=== PATIENT | female | born 1970 | race American Indian/Alaskan Native ===

== ENCOUNTER 2017-04-27 06:10 | Inpatient (IN) | payer OTHER ==
[2017-04-16 12:38] LABS: Basophils % (Auto) 1.1 % (0.0-1.8); Eosinophils % (Auto) 2.1 % (0.0-4.3); Hematocrit 38.7 % (30.3-42.9); Hemoglobin 12.3 gm/dl (10.1-14.3); Mean Corpuscular HGB Conc 32 % (30-34); Mean Corpuscular Hemoglobin 28 pg (28-32); Mean Corpuscular Volume 89 fl (79-97); Platelet Count 296 K/mm3 (140-440); Red Blood Count 4.37 M/mm3 (3.65-5.03); Red Cell Distribution Width 12.6 % (13.2-15.2)
--- NOTE | 2017-04-26 13:24 | History and Physical Report ---
History of Present Illness Date of examination: 04/16/17 Chief complaint: Menorrhagia and dysmenorrhea/pelvic pain unresponsive to medical and conservative surgical management. She now desires hysterectomy. 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 of genital herpes: yes Hx of STD: HSV Other: chlamydia Gonorrhea Active Medications (reviewed today): IBUPROFEN 800 MG TABS (IBUPROFEN) 1 po TID (PRN) OXYCODONE-ACETAMINOPHEN 5-325 MG TABS (OXYCODONE-ACETAMINOPHEN) 1-2po q6h TRANEXAMIC ACID 650 MG TABS (TRANEXAMIC ACID) 1300 mg(2 tabs) 3 times daily ( 3900 mg daily) for up to 5 days during monthly menstruation Current Allergies (reviewed today): No known allergies Past Medical History: Reviewed history from 01/06/2017 and no changes required: Neurologic Disorder: migraines w/o auras Past Surgical History: Reviewed history from 12/04/2016 and no changes required: Endometrial Ablation:(05/23/2015) Tubal Ligation (05/23/2015) Family History Summary: Reviewed history Last on 01/06/2017 and no changes required:04/26/2017 Other family member - Has Family History of Osteoporosis - Entered On: 2013 Other family member - Has No Family History of Cervical Cancer - Entered On: Other family member - Has No Family History of Colon Cancer - Entered On: 2013 Other family member - Has No Family History of Ovarvian Cancer - Entered On: Other family member - Has No Family History of DVT/PE on OCP - Entered On: 07/23 Other family member - Has No Family History of Biliary Tract Cancer - Entered On : 08/09/2016 Other family member - Has No Family History of Brain Cancer - Entered On: 2015 Other family member - Has No Family History of Pancreatic Cancer - Entered On: 08/09/2016 Other family member - Has No Family History of Stomach Cancer - Entered On: Other family member - Has No Family History of Small Bowel Cancer - Entered On: 08/09/2016 Other family member - Has No Family History of Uterine Cancer - Entered On: General Comments - FH: MGF ?cancer Social History: Reviewed history from 08/07/2016 and no changes required: Patient is Smoking History: Patient has never smoked. Risk Factors: Smoked Tobacco Use: Never smoker Smokeless Tobacco Use: Never Drug use: no HIV high-risk behavior: no Alcohol use: no Exercise: no Seatbelt use: 100 % Previous Tobacco Use: Signed On 03/04/2017 Smoked Tobacco Use: Never smoker Smokeless Tobacco Use: Never Drug use: no HIV high-risk behavior: no Previous Alcohol Use: Signed On - 03/04/2017 Alcohol use: no Exercise: no Seatbelt use: 100 % Mammogram History: Date of Last Mammogram: 10/11/2013 PAP Smear History: Date of Last PAP Smear: 07/25/2015 Review of Systems General Denies fever, chills, sweats, anorexia, fatigue, weakness, malaise, weight loss and sleep disorder. Complains of menorrhagia and pelvic pain, painful periods. Denies vaginal discharge, incontinence, dysuria, hematuria, urinary frequency, amenorrhea, abnormal vaginal bleeding, genital sores, decreased libido, painful sex, urinary urgency, hot flashes, vaginal dryness, vaginal itching and vaginal odor. CV Denies chest pains, palpitations, syncope, dyspnea on exertion, orthopnea, PND and peripheral edema. Resp Denies cough, dyspnea at rest, excessive sputum, hemoptysis, wheezing and pleurisy. GI Denies nausea, vomiting, diarrhea, constipation, change in bowel habits, abdominal pain, melena, hematochezia, jaundice, gas/bloating, indigestion/ heartburn, dysphagia and odynophagia. Endo Denies cold intolerance, heat intolerance, polydipsia, polyphagia, polyuria and unusual weight change. Breast Denies left breast lump, right breast lump, nipple discharge, bloody discharge from nipple, breast pain, abnormal mammogram and breast enlargement. MS Denies back pain, joint pain, joint swelling, muscle cramps, muscle weakness, stiffness, arthritis, sciatica, restless legs, leg pain at night and leg pain with exertion. Derm Denies rash, itching, dryness and suspicious lesions. Neuro Denies paralysis, paresthesias, headache, seizures, tremors, vertigo, transient blindness, frequent falls, frequent headaches and difficulty walking. Psych Denies depression, anxiety, irritability and mood swings. Eyes Denies blurring, diplopia, irritation, discharge, vision loss, eye pain and photophobia. ENT Denies earache, ear discharge, tinnitus, decreased hearing, nasal congestion, nosebleeds, sore throat and hoarseness. Allergy Denies urticaria, allergic rash, hay fever and recurrent infections. Heme Denies abnormal bruising, bleeding and enlarged lymph nodes. Physical Exam Appearance: well developed, well nourished, no acute distress Other Exams Breast exam: no masses or nipple discharge Lungs: no rales, rhonchi, or wheezes Heart: S1, S2, no murmur, rub, or gallop Abdomen: soft, non-tender, no masses, Skin: no ulcers, xanthomas Lymph: no cervical, axillary, or inguinal adenopathy Extremities: normal alignment, no joint enlargement, crepitus, masses or tenderness; normal tone and strength Genitourinary Exam Vulva: normal, no lesions or discharge Urethral meatus: normal size and location, no lesions or discharge Urethra: no discharge Bladder: no cystocele Vagina: normal appearance, no discharge, lesions. No evidence of cystocele or rectocele. Cervix: normal appearance, no lesions, no discharge Uterus: normal position, midline, mobile Adnexa: no masses or tenderness Impression & Recommendations: Problem # 1: Excessive and frequent menstruation with irregular cycle (ICD- 626.6) (EQJ02-V21.1) Diagnosis explained to patient . Questions answered. Discussed with patient various medical and surgical therapies common for treatment: Hormonal/medical therapy or hysterectomy. She desires to proceed with hysterectomy Robotic assisted hysterectomy(DaVinci) pamphlet given. Her updated medication list for this problem includes: Ibuprofen 800 Mg Tabs (Ibuprofen) ..... 1 po tid (prn) Consent reviewed and signed . Possible laparoscopy or laparotomy explained to patient. The risks and alternatives for this surgery were reviewed with the patient. She was informed of possible bleeding, infection, injury to bowel, bladder, ureters or other adjacent organs. She was informed she will not be able to get after her uterus is removed. She was informed she may require surgery later to have her ovaries removed for a benign or mailgnant condition. The patient was instructed/informed the following: The normal length of hospital stay for this procedure. Nothing to eat or drink after midnight the evening prior to surgery. Clear liquids the day before surgery. Fleets enema the day prior to surgery. Pre-op instruction sheets given. Wound care instructions given. Infection precautions reviewed, patient to call for any signs or symptoms of infection. The usual discomforts associated with this procedure were detailed. Proper use of pain medicines was reviewed. Patient was given ample opportunity to have all her questions answered before signing informed consent. Counseling and coordination of care was >50% of the face to face time. The total face to face time for this visit was 40 minutes.. Problem # 2: Uterine fibroids (ICD-218.9) (MKI39-O49.9) a small fundal fibroid was noted on the TVUS performed 2015 Diagnosis explained to patient . Questions answered. Discussed with patient various medical, surgical and radioloigal therapies common for treatment: Hormonal/medical therapy, fibroid embolization, removal of fibroids or hysterectomy. She desires to proceed with hysterectomy Her updated medication list for this problem includes: Ibuprofen 800 Mg Tabs (Ibuprofen) ..... 1 po tid (prn) Oxycodone-acetaminophen 5-325 Mg Tabs (Oxycodone-acetaminophen) ..... 1-2po q6h Problem # 3: Dysmenorrhea (ICD-625.3) (UIW98-J58.6) Her updated medication list for this problem includes: Ibuprofen 800 Mg Tabs (Ibuprofen) ..... 1 po tid (prn) Problem # 4: Pelvic and perineal pain (ICD-789.00) (TKO86-S80.2) It was extensively explained to her that her pain may persist, recur or change in nature due to the difficulty with diagnosis chronic pelvic pain or development of adhesions. She desires ovarian perservation. She was informed she may require surgery later to have her ovaries removed for a benign or mailgnant condition Her updated medication list for this problem includes: Ibuprofen 800 Mg Tabs (Ibuprofen) ..... 1 po tid (prn) Oxycodone-acetaminophen 5-325 Mg Tabs (Oxycodone-acetaminophen) ..... 1-2po q6h Medications Added to Medication List This Visit: 1) Ibuprofen 800 Mg Tabs (Ibuprofen) .... 1 po tid (prn) 2) Oxycodone-acetaminophen 5-325 Mg Tabs (Oxycodone-acetaminophen) .... 1-2po q6h Prescriptions: IBUPROFEN 800 MG TABS (IBUPROFEN) 1 po TID (PRN) #30 x 1 Entered and Authorized by: Charlee Abbott MD Method used: Print then Give to Patient RxID: [id number] OXYCODONE-ACETAMINOPHEN 5-325 MG TABS (OXYCODONE-ACETAMINOPHEN) 1-2po q6h #30 Tablet x 0 Entered and Authorized by: Charlee Abbott MD Method used: Print then Give to Patient RxID: [id number] Medications and Allergies Allergies Allergy/AdvReac Type Severity Reaction Status Date / Time latex Allergy burning Verified 04/16/17 13:24 Home Medications Medication Instructions Recorded Confirmed Last Taken Type Tranexamic Acid 650 mg PO BID PRN 04/16/17 04/16/17 Unknown History Active Meds: Active Medications Cefazolin Sodium (Ancef/Sterile Water 2 Gm/20 Ml) 2 gm in 20 mls @ 80 mls/hr IV PREOP NR PRN Reason: Protocol Exam Vital Signs Temp Pulse Resp BP 98.2 F 64 16 128/84 04/16/17 12:00 04/16/17 12:00 04/16/17 12:00 04/16/17 12:00 Results - Labs 04/16/17 12:15 Assessment and Plan - Patient Problems (1) Menorrhagia Status: Acute Qualifiers: Menorrahagia type: M (2) Pelvic pain Status: Acute (3) Dysmenorrhea Status: Acute (4) Fibroids, subserous Status: Acute
[~2017-04-27 06:10] MED LIST: ANCEF/STERILE WATER 2 GM/20 ML 2 GM/20 ML SYRINGE IV NR
[2017-04-27] MEDS ORDERED: NACL BACTERIOSTATIC INFILTRATI ONE (06:36)
[2017-04-27] MEDS ORDERED: NACL 0.9% 1000 ML 1,000 ML ONE ×2 (07:09→09:23)
[2017-04-27] MEDS ORDERED: DIPRIVAN 10 MG/ML IV ONE (07:28)
[2017-04-27] MEDS ORDERED: NEOSPORIN GU IR ONE ×2 (07:28→10:00)
[2017-04-27] MEDS ORDERED: ZEMURON IV ONE (07:29)
[2017-04-27] MEDS ORDERED: XYLOCAINE MPF 2% ONE (07:30)
--- NOTE | 2017-04-27 07:30 | Anesthesia Day of Surgery ---
Anesthesia Day of Surgery - Day of Surgery Patient Examined: Yes Patient H&P Reviewed: Yes Patient is NPO: Yes
--- NOTE | 2017-04-27 07:30 | Anesthesia Consultation ---
Anesthesia Consult and Med Hx Date of service: 04/27/17 - Airway Anesthetic Teeth Evaluation: Good ROM Head & Neck: Adequate Mental/Hyoid Distance: Adequate Mallampati Class: Class II Intubation Access Assessment: Probably Good - Pulmonary Exam CTA: Yes - Cardiac Exam Cardiac Exam: RRR - Pre-Operative Health Status ASA Pre-Surgery Classification: ASA2 Proposed Anesthetic Plan: General Nerve Block: TAP - Pulmonary Hx Smoking: No Hx Asthma: No - Cardiovascular System Hx Hypertension: No Hx Coronary Artery Disease: No Hx Heart Attack/AMI: No Hx Angina: No - Central Nervous System Hx Seizures: No CVA: No Hx Psychiatric Problems: No - Gastrointestinal Hx Gastroesophageal Reflux Disease: Yes (severe history but subsided a little lately) - Endocrine Hx Renal Disease: No Hx Liver Disease: No Hx Non-Insulin Dependent Diabetes: No Hx Thyroid Disease: No - Hematic Hx Anemia: Yes - Other Systems Hx Cancer: No Hx Obesity: Yes
[2017-04-27] MEDS ORDERED: XYLOCAINE 1% 20 mL ONE (07:35)
[2017-04-27] MEDS ORDERED: MARCAINE-EPI/PF 0.5%-1:200,000 INFILTRATI ONE (07:35)
[2017-04-27] MEDS ORDERED: DECADRON ONE ×2 (07:35→09:25)
[2017-04-27] MEDS ORDERED: CLONIDINE 1,000 MCG/10 ML VIAL EP ONE (07:35)
[2017-04-27] MEDS ORDERED: CALCIUM CHLORIDE IV ONE (07:46)
[2017-04-27] MEDS ORDERED: THROMBIN (BOVINE) TP ONE (07:46)
[2017-04-27] MEDS ORDERED: NACL 0.9% 1000 ML 1,000 ML IV SCH (08:00)
[2017-04-27] MEDS ORDERED: SUBLIMAZE IV NR (08:00)
[2017-04-27] MEDS ORDERED: PEPCID PO NR (08:00)
[2017-04-27] MEDS ORDERED: NEURONTIN PO NR (08:00)
[2017-04-27] MEDS ORDERED: ZOFRAN IV PRN ×2 (08:00→13:26)
[2017-04-27] MEDS ORDERED: TRANSDERM-SCOP TD NR (08:00)
[2017-04-27] MEDS ORDERED: DILAUDID IV PRN (08:00)
[2017-04-27] MEDS ORDERED: VERSED IV NR (08:00)
[2017-04-27] MEDS ORDERED: ZOFRAN ONE (09:25)
[2017-04-27] MEDS ORDERED: ROBINUL ONE (09:42)
[2017-04-27] MEDS ORDERED: NEOSTIGMINE ONE (09:43)
[2017-04-27] MEDS ORDERED: WATER FOR IRRIG STERILE IR ONE (10:00)
[2017-04-27] MEDS ORDERED: NACL 0.9% IR ONE (10:00)
[2017-04-27] MEDS ORDERED: NEO SYNEPHRINE/NS Syringe(OR USE) IV ONE (10:00)
[2017-04-27] MEDS ORDERED: TORADOL ONE (10:39)
[2017-04-27] MEDS ORDERED: TORADOL IV PRN (10:40)
--- NOTE | 2017-04-27 10:55 | Operative Report ---
Operative Report Operative Report: Date of procedure: 04/27/2017 Pre-operative diagnosis: 1. Menorrhagia 2. Pelvic pain 3. Dysmenorrhea 4. Uterine fibroids 5. Symptoms were unresponsive to previous medical and conservative surgical therapy Post-operative diagnosis: 1. Menorrhagia 2. Pelvic pain 3. Dysmenorrhea 4. Uterine fibroids 5. Symptoms were unresponsive to previous medical and conservative surgical therapy 6. Left ovarian cyst Procedure name(s): 1. Robotic-assisted total hysterectomy 2. Bilateral salpingectomy 3. Ovarian cystectomy Surgeon: Charlee Abbott MD Gin Clerk: Loren Obando Anesthesia: GETA Findings: Uterus was sounded to 8 cm. Grossly normal and segments of remaining fallopian tubes with a small paratubal cyst noted on the left fallopian tube. The sling normal right ovary with an approximately 1/2 cm left ovarian cyst noted. No evidence of endometriosis noted. Anesthesiologist: Claudia Gutiérrez M.D. Complications: None EBL: Less than 50 mL Procedure: After risks, benefits complications, consequences, and alternatives for this procedure were discussed the patient, and she voiced understanding and desired to proceed, she was taken to the OR where general anesthesia was induced. She was placed in the dorsolithotomy position, exam under anesthesia was unremarkable. She was then prepped and draped in usual sterile fashion. Timeout was performed. Acuna catheter was introduced into the bladder. A bivalve speculum was introduced into the vagina, and the anterior lip of the cervix was grasped with a single-tooth tenaculum. The uterus was sounded to approximately 8 cm. The cervix was progressively dilated to allow the large the V care uterine manipulator. The tenaculum and speculum were removed and the Vcare manipulator was secured in place. A solution saturated laparotomy sponge was placed in the vagina. Sterile gloves were placed and attention was turned to the abdomen. A 12 mm Optiview trocar with scope and camera attached was placed through a midline vertical incision was approximately 10 cm superior to the elevated fundus of the uterus. The trocar with camera attached was placed under direct visualization. No bowel, bladder, ureteral or major blood vessel injury was noted. The abdomen was insufflated. Patient was placed in steep Trendelenburg position. Additional trocars were placed in the following positions: 8 mm robotic trocars were placed in the bilateral midclavicular lower abdominal region approximately 10 cm lateral to the midline incision. An additional 5 mm trocar was placed in the right lateral lower abdominal region approximately 2 cm superior to the anterior superior iliac crest. The midline trocar was removed. Using the 5 mm laparoscope through the right lateral trocar 0 Vicryl was placed in the fascia of the midline incision using the Silas-Mary fascia closure device. The suture was secured with a hemostat. The midline trocar was then introduced again. The instruments were introduced into the 8 mm trochars. Attention was turned to console. The uterus was elevated, the utero-ovarian ligaments were clamped, cauterized and incised bilaterally using 30 W of energy. Then the round ligaments were clamped, cauterized and incised bilaterally. The anterior leaf of the broad ligament was elevated with both blunt and sharp dissection the bladder flap was created. Once the bladder appeared to be away from the operative field attention was turned the posterior leaf of the broad ligaments. The ligaments were elevated and dissected away from the uterine vessels. Once the outline of the Vcare uterine manipulator was visualized, the uterine vessels were clamped and cauterized bilaterally. Once blanching of the uterus was noted, and the posterior outline of the Vcare manipulator was visualized, and confirmed, colpotomy was performed down to the cup of the manipulator. This incision was extended in a circumferential manner to 9:00 and 3:00 positions. The uterine vessels were clamped, cauterized and incised. The colpotomy was completed. The uterus was then delivered through the vagina. Bilateral salpingectomy was performed. The tubes were removed through the lateral 5 mm trocar. Once hemostasis was noted the vagina was reapproximated using the V LOC 180 suture. Then a left ovarian cystectomy was performed. And the cyst wall was removed with the right lateral 5 mm trocar. The pelvis was again irrigated with warm normal saline. Once hemostasis was noted, platelet rich plasma was applied for further hemostasis followed by platelet poor plasma to prevent adhesions. The ureters were noted to be peristaltic and away from the operative field. Once hemostasis noted, the abdomen and pelvis were again visualized, no bowel, bladder, ureteral or major vascular injury was noted, hemostasis was also noted. The trocars were removed. The fascial incision was then ligated. The skin incisions were approximated using 4-0 Vicryl in a subcuticular manner. The incisions were then sealed with Octylseal.The laparotomy sponge was removed from the vagina, and hemostasis was noted. The patient tolerated the procedure well and was taken to recovery room in stable condition. Counts were correct x3. Clear yellow urine was noted draining into the Acuna catheter was noted.
--- NOTE | 2017-04-27 11:29 | Post Anesthesia Evaluation ---
- Post Anesthesia Evaluation Patient Participated: Yes Airway Patent: Yes Stable Respiratory Function: Yes Nausea/Vomiting: No Temp > 96.8F: Yes Pain Manageable: Yes Adequeate Hydration: Yes Anesthesia Complications: No Block Receding Appropriately: Not Applicable Patient on Ventilator: No
[2017-04-27] MEDS ORDERED: ZOFRAN PO PRN (13:26)
[2017-04-27] MEDS ORDERED: REGLAN PO PRN (13:26)
[2017-04-27] MEDS ORDERED: REGLAN IV PRN (13:26)
[2017-04-27] MEDS ORDERED: MORPHINE IV PRN ×2 (13:26)
[2017-04-27] MEDS: LACTATED RINGERS 1,000 ML IV SCH ×2 (13:55→21:42)
--- NOTE | 2017-04-27 14:18 | Admit Criteria Form ---
Admission Criteria Documentation: AMBULATORY SURGERY EXCEPTION CRITERIA Ambulatory Surgery Exception Criteria ( Place 'X' for any and all applicable criteria): Surgery or procedure performed on ambulatory basis may require inpatient stay for[A] ANY ONE of the following(1)(2)(3)(4)(5)(6)(7)(8)(9): [X] I. A preoperative situation, condition, or finding that warrants inpatient stay as indicated by ANY ONE of the following: [X] a) Inpatient care needed because of severity of a disease or condition rather than the surgery (eg, severe cardiac or respiratory disease, severe infection) (15) (16 ) (17) (18) [] b) Emergent procedure (eg, angioplasty for acute ischemia)(19) [] c) Complex surgical approach or situation as indicated by ANY ONE of the following(3): [] i) Open approach needed instead of usual endoscopic, transcatheter, or other less invasive procedure [] ii) Difficult approach because of previous operation [] iii) Airway monitoring required after open neck procedures(20)(21) [] iv) Large mass requiring unusually extensive dissection [] v) Additional complicating feature requiring inpatient care (eg, drain management)(22(23): [] d) Major surgery in a pt with high anesthetic risk as indicated by ANY ONE of the following (2)(3)(5)(7)(8): [] i) ASA risk class III or higher (severe systemic disease impairing function) [D] [] ii) Advanced age (eg, older than 85 years)(14)(24) [] iii) Symptomatic heart failure(25) [] iv) Symptomatic asthma or COPD(8)(21) [] v) Morbid obesity with hemodynamic or respiratory problems(20)( 21)(26)(27) [] vi) Obstructive sleep apnea(20)(21) [] vii) Former premature infants who are younger than 60 weeks [] viii) High risk for severe postoperative abnormalities (eg, severe postoperative hypocalcemia after parathyroidectomy for severe hyperparathyroidism)(27)( 28) [] ix) Unstable angina(25) [] e) Drug-related risk requiring inpatient stay as indicated by ANY ONE of the following(5)(10)(14)(32)(33) [] i) Procedure requires discontinuing drugs or other therapy (eg , antiarrhythmic medication, antiseizure medication), which necessitates inpatient observation or treatment.(18)(31) [] ii) Major surgery and high risk drug use as indicated by ANY ONE of the following: [] 1) Active abuse of cocaine or similar drug [] 2) Monoamine oxidase inhibitor use [] 3) Other drug identified as posing risk [] f) Inadequate outpatient care situation as indicated by ANY ONE of the following(5)(10)(14)(32)(33) [] i) Patient lives remote from medical facility and procedure has urgent complication potential, and temporary nearby residence cannot be arranged [] ii) Patient will have postprocedure incapacitation and inadequate assistance at home, or alternative level of care cannot be arranged. [] iii) Patient will have long general anesthesia or procedure side effect resolution time, and competent person to stay with patient on first postoperative night at home or alternative level of care cannot be arranged. []iv) Other inadequate outpatient situation that cannot be handled by other means [X] II. A perioperative event, condition, or finding that warrants inpatient stay as indicated by ANY ONE of the following (1)(2)(3): [X] a) Inadequate physiologic recovery: cardiovascular, respiratory, or hemodynamic status not normal or near preoperative baseline(18) [] b) Hemodynamic instability [] c) Patient not alert with near normal or baseline mental status [] d) Temperature not normal or as expected and not appropriate for outpatient treatment of condition [] e) Ambulatory or appropriate activity level status not yet achieved post procedure [E](34)(35)(36) [] f) Operative site not appropriate (eg, unexpected or excessive drainage or bleeding) [] g) Postoperative effects not resolved or adequately managed (eg, significant pain or vomiting not appropriate for outpatient or next level of care)(10)(12) [] h) Complicating features requiring inpatient care as indicated by ANY ONE of the following(37): [] i) Severe complications of procedure (eg, bowel injury, airway compromise, vascular injury,severe hemorrhage) [] ii) Extensive (eg, dissection far beyond usual scope of procedure ) or prolonged (eg, 120 minutes beyond usual) surgery needed requiring inpatient postoperative care [] iii) Conversion to an open or complex procedure that requires inpatient care (eg, open vs laparoscopic cholecystectomy, abdominal vs vaginal hysterectomy)(38) [] iv) Comorbid condition or test result identified during or post procedure that requires inpatient care (7) [] v) Malignant hyperthermia(30) [] vi) Other complicating feature requiring inpatient care(22)(23) Inpatient stay may be needed until ALL of the following are present (1)(2)(3)(4) (5)(6)(10)(14)(33)(40): []a) Physiologic recovery: cardiovascular, respiratory, and hemodynamic status normal or near preoperative baseline []b) Hemodynamic stability []c) Patient alert, with near normal or baseline mental status []d) Temperature appropriate: patient afebrile or temperature appropriate for outpt treatment of condition []e) Activity level appropriate: ambulatory or appropriate activity level post procedure []f) Operative site appropriate as indicated by ALL of the following: []i) Site dry or with expected drainage []ii) Any blood noted is as expected for procedure. []g) Postoperative effects resolved or managed as indicated by ALL of the following: []i) Pain management appropriate for outpatient (or next level of) care(10) []ii) Minimal nausea and vomiting: if present, successfully treated with oral medication(12) []iii) Headache, dizziness, or drowsiness (if present) are mild. []h) Voiding status acceptable as indicated by ANY ONE of the following: []i) Voiding spontaneously []ii) No voiding but instructions given for follow-up in 6 to 8 hours []iii) Urinary catheter in place, and instructions given for follow-up []i) Complicating features requiring inpatient care manageable at a lower level of care(37) []j) Comorbid conditions manageable at a lower level of care(37) The original [email or web address] content created by [employer] has been revised. The portions of the content which have been revised are identified through the use of italic text or in bold, and [facility] has neither reviewed nor approved the modified material. All other unmodified content is copyright [facility]. Please see references footnoted in the original [email or web address] edition 2016 Admission Criteria Met: Yes
[2017-04-27] MEDS ORDERED: TYLENOL PO SCH (16:00)
[2017-04-27] MEDS: TYLENOL PO SCH ×2 (16:37→23:41)
[2017-04-27] MEDS: ANCEF/NS 1 GM/50 ML 1 GM/50 ML BAG IV SCH ×2 (16:41→21:41)
[2017-04-27] MEDS: TORADOL IV SCH ×2 (16:50→21:41)
[2017-04-27] MEDS: PERCOCET 5/325 PO PRN (20:46)
[2017-04-27] MEDS: PEPCID IV SCH (21:40)
[2017-04-28 02:22] LABS: Hematocrit 34.9 % (30.3-42.9); Hemoglobin 11.3 gm/dl (10.1-14.3); Mean Corpuscular HGB Conc 33 % (30-34); Mean Corpuscular Hemoglobin 29 pg (28-32); Mean Corpuscular Volume 89 fl (79-97); Platelet Count 235 K/mm3 (140-440); Red Blood Count 3.94 M/mm3 (3.65-5.03); Red Cell Distribution Width 12.7 % (13.2-15.2); White Blood Count 11.2 K/mm3 (4.5-11.0)
[2017-04-28] MEDS: PERCOCET 5/325 PO PRN ×2 (02:36→08:18)
[2017-04-28] MEDS: LACTATED RINGERS 1,000 ML IV SCH (04:58)
[2017-04-28] MEDS: TYLENOL PO SCH ×2 (05:00→10:53)
[2017-04-28] MEDS: TORADOL IV SCH ×2 (05:00→10:54)
--- NOTE | 2017-04-28 08:21 | Progress Note ---
Assessment and Plan - Patient Problems (1) History of robot-assisted laparoscopic hysterectomy Current Visit: Yes Status: Acute Plan to address problem: Doing well, BP's noted, no evidence of bleeding (HR nml). Will recheck BP's after she ambulates. ?d/c home today (2) Status post bilateral salpingectomy Current Visit: Yes Status: Acute (3) Status post ovarian cystectomy Current Visit: Yes Status: Acute (4) Menorrhagia Current Visit: Yes Status: Resolved Qualifiers: Menorrahagia type: M (5) Pelvic pain Current Visit: Yes Status: Resolved (6) Dysmenorrhea Current Visit: Yes Status: Resolved (7) Fibroids, subserous Current Visit: Yes Status: Resolved Subjective - Subjective Date of service: 04/28/17 Interval history: Resting in bed, easily aroused, c/o swollen upper lip and gas pain Patient reports: appetite normal Objective - Vital Signs Latest vital signs: Vital Signs Temp Pulse Pulse Resp BP BP Pulse Ox 04/28/17 04:25 98.4 F 62 18 93/57 04/28/17 00:00 98.9 F 68 18 99/54 04/27/17 20:10 99.1 F 74 18 99/59 04/27/17 17:07 98.9 F 68 18 100/60 04/27/17 13:05 97.6 F 52 L 16 106/62 04/27/17 12:45 66 12 97/58 99 04/27/17 12:30 97.0 F L 67 12 109/68 100 04/27/17 12:15 58 L 10 L 104/55 100 04/27/17 12:00 57 L 10 L 95/56 100 04/27/17 11:45 61 10 L 106/64 100 04/27/17 11:30 55 L 10 L 105/58 100 04/27/17 11:15 56 L 10 L 104/59 100 04/27/17 11:00 59 L 12 118/66 100 04/27/17 10:45 62 12 106/61 100 04/27/17 10:30 61 12 112/64 100 04/27/17 10:25 70 12 104/62 100 04/27/17 10:20 97.3 F L 69 12 98/53 100 Intake and Output 04/27/17 04/28/17 04/28/17 22:59 06:59 14:59 Intake Total 2045 1360 Output Total 700 1000 Balance 1345 360 Intake: IV 1625 1000 ANCEF/NS 1 GM/50 ML 1 gm 100 In 50 ml @ 100 mls/hr IV Q8H JOSEPHINE Rx#:[id number] Lactated Ringers 1,000 ml 1525 1000 @ 125 mls/hr IV DIRECT JOSEPHINE Rx#:[id number] Oral 420 360 Output: Urine 700 1000 Indwelling Catheter 700 1000 Other: Total, Intake Amount 420 120 Total, Output Amount 700 300 Voiding Method Indwelling Catheter - Exam Breasts: Present: deferred Cardiovascular: Present: Regular rate Lungs: Present: Clear to auscultation, Normal air movement Abdomen: Present: normal appearance, soft, normal bowel sounds Extremities: Present: normal. Absent: tenderness, edema Incision: Present: normal, dry, intact - Labs Labs: Abnormal lab results 04/28/17 Range/Units 02:05 WBC 11.2 H (4.5-11.0) K/mm3 RDW 12.7 L (13.2-15.2) %
[2017-04-28] MEDS: PEPCID IV SCH (10:05)
[2017-04-28 12:16] VITALS: BP 99/57
--- NOTE | 2017-04-28 14:50 | Progress Note ---
Subjective Date of service: 04/28/17 Interval history: 1st POD after robotic hysterectomy Patient is in the bed, relatively comfortable. Pain is well controlled with pain meds. Ambulated well. No nausea nor vomiting. Right side of upper lip is mildly swollen possibly as a result of ETT position or lip bite. No other anesthesia complications Objective - Constitutional Vitals: Vital Signs - 12hr 04/28/17 04/28/17 04/28/17 04:25 07:00 08:18 Temperature 98.4 F 98.7 F Pulse Rate [ 62 60 Radial] Respiratory 18 18 20 Rate Blood Pressure 93/57 112/69 [Right Arm] 04/28/17 11:00 Temperature 98.5 F Pulse Rate [ 55 L Radial] Respiratory 18 Rate Blood Pressure 99/57 [Right Arm] - Labs CBC & Chem 7: 04/28/17 02:05 Labs: Abnormal lab results 04/28/17 Range/Units 02:05 WBC 11.2 H (4.5-11.0) K/mm3 RDW 12.7 L (13.2-15.2) %
--- NOTE | 2017-04-28 15:49 | Discharge Summary ---
Providers - Providers Date of Admission: 04/28/17 07:57 Attending physician: GABRIEL COLE Primary care physician: SENIOR DATA ANALYST Hospitalization Condition: Good Disposition: DC-01 TO HOME OR SELFCARE - Discharge Diagnoses (1) History of robot-assisted laparoscopic hysterectomy Status: Acute (2) Status post bilateral salpingectomy Status: Acute (3) Status post ovarian cystectomy Status: Acute (4) Menorrhagia Status: Resolved Qualifiers: Menorrahagia type: M (5) Pelvic pain Status: Resolved (6) Dysmenorrhea Status: Resolved (7) Fibroids, subserous Status: Resolved Core Measure Documentation - Palliative Care Palliative Care/ Comfort Measures: Not Applicable - Core Measures Any of the following diagnoses?: none Exam - Constitutional Vitals: Temp Pulse Resp BP Pulse Ox 98.5 F 55 L 18 99/57 99 04/28/17 11:00 04/28/17 11:00 04/28/17 11:00 04/28/17 11:00 04/27/17 12:45 Plan Activity: other (No sex, no driving, no exercise. Ambulate on your property ~ 1mile a day. Use incentive spirometer every hour while awake. Void frequently to keep your bladder empty. ) Weight Bearing Status: Non-Weight Bearing Diet: regular (Eat small meals frequently, do not use straws, no fatty or spicy foods. Drink 90oz water a day. ) Wound: open to air, keep clean and dry Special Instructions: no heavy lifting (Nothing >25#) Follow up with: GABRIEL COLE MD [Staff Physician] - 05/05/17 10:00 am ([place]) PRIMARY CAREMD [Primary Care Provider] - 7 Days
== END 2017-04-28 18:40 | disposition home or self-care (01) | DRG 743 ==
LOC: OR 06:10 → OB 07:57 → OBSVTOIN 04-28 07:57
PROVIDERS: ADMIT Obstetrics & Gynecology; ATTEND Obstetrics & Gynecology
PROC: 0UT94ZZ Resection of Uterus, Percutaneous Endoscopic Approach (ICD-10-PCS; principal; 2017-04-27)
PROC: 0UTC4ZZ Resection of Cervix, Percutaneous Endoscopic Approach (ICD-10-PCS; 2017-04-27)
PROC: 0UT74ZZ Resection of Bilateral Fallopian Tubes, Percutaneous Endoscopic Approach (ICD-10-PCS; 2017-04-27)
PROC: 0UB13ZZ Excision of Left Ovary, Percutaneous Approach (ICD-10-PCS; 2017-04-27)
PROC: 8E0W4CZ Robotic Assisted Procedure of Trunk Region, Percutaneous Endoscopic Approach (ICD-10-PCS; 2017-04-27)
DX: D25.2 Subserosal leiomyoma of uterus (principal); N92.0 Excessive and frequent menstruation with regular cycle; N83.202 Unspecified ovarian cyst, left side; N94.6 Dysmenorrhea, unspecified; K21.9 Gastro-esophageal reflux disease without esophagitis; E66.9 Obesity, unspecified; Z98.51 Tubal ligation status; Z80.0 Family history of malignant neoplasm of digestive organs; Z80.41 Family history of malignant neoplasm of ovary; Z80.8 Family history of malignant neoplasm of other organs or systems; Z91.040 Latex allergy status; Z68.31 Body mass index [BMI] 31.0-31.9, adult
CPT/HCPCS: 36415; 64450; 81025; 85025; 85027; 86850; 86900; 86901; 88302; 88304; 88305; 88307; A4217; G0378; J0690; J0735; J1100; J1170; J1885; J2250; J2270; J2370; J2405; J2704; J2710; J3010; J7030; J7120

== ENCOUNTER 2017-08-31 08:06 | Day surgery (SDC) | payer OTHER ==
--- NOTE | 2017-08-30 18:18 | History and Physical Report ---
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 of genital herpes: yes Hx of STD: HSV Other: chlamydia Gonorrhea Active Medications (reviewed today): IBUPROFEN 800 MG ORAL TABLET (IBUPROFEN) 1 po TID (PRN) OXYCODONE-ACETAMINOPHEN 5-325 MG ORAL TABLET (OXYCODONE-ACETAMINOPHEN) 1-2po q6h DOXYCYCLINE HYCLATE 100 MG ORAL CAPSULE (DOXYCYCLINE HYCLATE) 1 tab BID take with meals VALACYCLOVIR HCL 1 GM ORAL TABLET (VALACYCLOVIR HCL) 1 tab po qd x5days as needed ESTROVEN MENOPAUSE RELIEF ORAL CAPSULE (BLACK [id number]) Current Allergies (reviewed today): No known allergies Past Medical History: Reviewed history from 04/16/2017 and no changes required: Neurologic Disorder: migraines w/o auras Past Surgical History: Reviewed history from 04/27/2017 and no changes required: Endometrial Ablation:(05/23/2015) Tubal Ligation (05/23/2015) Laparoscopic Hysterectomy (04/27/2017) with (B) salpingectomy Social History: Reviewed history from 04/16/2017 and no changes required: Patient is Smoking History: Patient has never smoked. Risk Factors: Smoked Tobacco Use: Never smoker Smokeless Tobacco Use: Never Passive smoke exposure: no Drug use: no HIV high-risk behavior: no Alcohol use: no Exercise: yes Seatbelt use: 100 % Mammogram History: Date of Last Mammogram: 07/27/2017 PAP Smear History: Date of Last PAP Smear: 07/25/2015 Review of Systems General Denies fever, chills, sweats, anorexia, fatigue, weakness, malaise, weight loss and sleep disorder. Complains of vaginal discharge and pelvic pain. 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 1 po tid (prn) Oxycodone-acetaminophen 5-325 Mg Oral Tablet (Oxycodone-acetaminophen) ..... 1-2po q6h Doxycycline Hyclate 100 Mg Oral Capsule (Doxycycline hyclate) ..... 1 tab bid take with meals Problem # 2: Wound dehiscence (ICD-998.32) (DAA88-U99.31xA) Her updated medication list for this problem includes: Ibuprofen 800 Mg Oral Tablet (Ibuprofen) ..... 1 po tid (prn) Oxycodone-acetaminophen 5-325 Mg Oral Tablet (Oxycodone-acetaminophen) ..... 1-2po q6h Doxycycline Hyclate 100 Mg Oral Capsule (Doxycycline hyclate) ..... 1 tab bid take with meals Consent reviewed and signed . Possible laparoscopy or laparotomy explained to patient. The risks and alternatives for this surgery were reviewed with the patient. She was informed of possible bleeding, infection, injury to bowel, bladder, ureters or other adjacent organs. The patient was instructed/informed the following: The normal length of hospital stay for this procedure. Nothing to eat or drink after midnight the evening prior to surgery. Clear liquids the day before surgery. Fleets enema the day prior to surgery. Pre-op instruction sheets given. Wound care instructions given. Infection precautions reviewed, patient to call for any signs or symptoms of infection. The usual discomforts associated with this procedure were detailed. Proper use of pain medicines was reviewed. Patient was given ample opportunity to have all her questions answered before signing informed consent. Medications Added to Medication List This Visit: 1) Ibuprofen 800 Mg Oral Tablet (Ibuprofen) .... 1 po tid (prn) 2) Oxycodone-acetaminophen 5-325 Mg Oral Tablet (Oxycodone-acetaminophen) .... 1-2po q6h Prescriptions: IBUPROFEN 800 MG ORAL TABLET (IBUPROFEN) 1 po TID (PRN) #30 x 1 Entered and Authorized by: Charlee Abbott MD Method used: Print then Give to Patient RxID: [id number] OXYCODONE-ACETAMINOPHEN 5-325 MG ORAL TABLET (OXYCODONE-ACETAMINOPHEN) 1-2po q6h #15 Tablet x 0 Entered and Authorized by: Charlee Abbott MD Method used: Print then Give to Patient RxID: [id number] Medications and Allergies Allergies Allergy/AdvReac Type Severity Reaction Status Date / Time latex Allergy burning Verified 08/25/17 18:06 povidone-iodine AdvReac Intermediate Unknown Verified 08/25/17 18:06 [From Betadine] soap [From Betadine] AdvReac Intermediate Unknown Verified 08/25/17 18:06 Home Medications Medication Instructions Recorded Confirmed Last Taken Type Doxycycline [Vibramycin] 100 mg PO Q12HR 08/25/17 08/25/17 Unknown History Active Meds: Active Medications Cefazolin Sodium 1 gm/ Sodium (Chloride) 20 mls @ 20 mls/10 min IV PREOP JOSEPHINE PRN Reason: Protocol Metronidazole (Flagyl 500 Mg/100 Ml) 500 mg in 100 mls @ 100 mls/hr IV ONCE ONE Stop: 08/31/17 07:59 Assessment and Plan - Patient Problems (1) Vaginal cuff dehiscence Status: Acute (2) Pelvic pain Status: Resolved
[~2017-08-31 08:06] MED LIST changes: -ANCEF/STERILE WATER 2 GM/20 ML 2 GM/20 ML SYRINGE IV NR; +FLAGYL 500 MG/100 ML 500 MG/100 ML BAG IV NR; +ceFAZolin 1 GM in NACL 0.9% 20 ML IV SCH
[2017-08-31] MEDS ORDERED: METHYLENE BLUE ONE (09:00)
[2017-08-31] MEDS ORDERED: MARCAINE 0.5% 30 ML INFILTRATI ONE (09:00)
--- NOTE | 2017-08-31 10:29 | Anesthesia Consultation ---
Anesthesia Consult and Med Hx Date of service: 08/31/17 - Airway Anesthetic Teeth Evaluation: Good ROM Head & Neck: Adequate Mental/Hyoid Distance: Adequate Mallampati Class: Class II Intubation Access Assessment: Probably Good - Pulmonary Exam CTA: Yes - Cardiac Exam Cardiac Exam: RRR - Pre-Operative Health Status ASA Pre-Surgery Classification: ASA2 Proposed Anesthetic Plan: General - Pulmonary Hx Smoking: No - Cardiovascular System Hx Hypertension: No - Central Nervous System Hx Neuromuscular Disorder: Yes (migraines) Hx Psychiatric Problems: No - Gastrointestinal Hx Gastroesophageal Reflux Disease: Yes (off medications and is now mild) - Endocrine Hx Renal Disease: No Hx Non-Insulin Dependent Diabetes: No Hx Thyroid Disease: No - Hematic Hx Anemia: No Hx Sickle Cell Disease: No - Other Systems Hx Alcohol Use: No Hx Substance Use: No Hx Cancer: No Hx Obesity: Yes
--- NOTE | 2017-08-31 10:29 | Anesthesia Day of Surgery ---
Anesthesia Day of Surgery - Day of Surgery Patient Examined: Yes Patient H&P Reviewed: Yes Patient is NPO: Yes
[2017-08-31] MEDS ORDERED: VERSED IV NR (10:31)
[2017-08-31] MEDS ORDERED: XYLOCAINE MPF 2% ONE (10:33)
[2017-08-31] MEDS ORDERED: ZEMURON IV ONE (10:33)
[2017-08-31] MEDS ORDERED: DIPRIVAN 10 MG/ML IV ONE (10:33)
[2017-08-31] MEDS ORDERED: DILAUDID ONE (10:34)
[2017-08-31] MEDS ORDERED: PEPCID PO NR (11:00)
[2017-08-31] MEDS ORDERED: LACTATED RINGERS 1,000 ML IV SCH (11:00)
[2017-08-31 11:03] LABS: Hematocrit 37.7 % (30.3-42.9); Hemoglobin 12.4 gm/dl (10.1-14.3); Mean Corpuscular HGB Conc 33 % (30-34); Mean Corpuscular Hemoglobin 29 pg (28-32); Mean Corpuscular Volume 87 fl (79-97); Platelet Count 318 K/mm3 (140-440); Red Blood Count 4.32 M/mm3 (3.65-5.03); Red Cell Distribution Width 12.9 % (13.2-15.2); White Blood Count 4.8 K/mm3 (4.5-11.0)
[2017-08-31] MEDS ORDERED: VERSED ONE ×2 (11:15→11:21)
[2017-08-31] MEDS ORDERED: DECADRON ONE (11:50)
[2017-08-31] MEDS ORDERED: ZOFRAN ONE (12:02)
[2017-08-31] MEDS ORDERED: MARCAINE 0.5% INFILTRATI ONE (12:11)
[2017-08-31] MEDS ORDERED: NACL 0.9% IR ONE (12:15)
[2017-08-31] MEDS ORDERED: NEOSTIGMINE ONE (12:28)
[2017-08-31] MEDS ORDERED: ROBINUL ONE (12:28)
[2017-08-31] MEDS ORDERED: LACTATED RINGERS 1,000 ML ONE (12:35)
--- NOTE | 2017-08-31 13:19 | Discharge Summary ---
Providers - Providers Date of discharge: 08/31/17 Attending physician: GABRIEL COLE Primary care physician: ORGANISATIONAL PSYCHOLOGIST Hospitalization Condition: Good Procedures: Right ovarian cystectomy, adhesiolysis, repair of vaginal cuff Disposition: - TO HOME OR SELFCARE - Discharge Diagnoses (1) Vaginal cuff dehiscence Status: Resolved (2) Pelvic pain Status: Chronic (3) Right ovarian cyst Status: Resolved Core Measure Documentation - Palliative Care Palliative Care/ Comfort Measures: Not Applicable - Core Measures Any of the following diagnoses?: none Exam - Constitutional Vitals: Temp Pulse Resp BP Pulse Ox 98.5 F 66 16 110/72 99 08/31/17 10:40 08/31/17 10:40 08/31/17 10:40 08/31/17 10:40 08/31/17 10:40 General appearance: Present: no acute distress - Respiratory Respiratory effort: normal - Cardiovascular Rhythm: regular Plan Activity: other (No sex) Weight Bearing Status: Weight Bear as Tolerated Diet: regular (Drink 90 oz water day, void frequently to keep pressure off of vagina. Do not strain. ) Wound: other (May Shower only, No bath, no douching, nothing in vagina) Special Instructions: no heavy lifting (>15#, no driving.) Additional Instructions: Prescription for Flagyl has been sent to [address], [place], [place] [phone]. Please take a probiotic of choose Follow up with: GABRIEL COLE MD [Staff Physician] - (As scheduled)
--- NOTE | 2017-08-31 13:27 | Post Operative Note ---
Pre-op diagnosis: Vaginal cuff dehiscence, pelvic pain Post-op diagnosis: same ((R) ovarian cyst, pelvic adhesions, vaginal cuff dehiscence) Findings: (R) ovarian cyst, pelvic adhesions, vaginal cuff dehiscence Procedure: Adhesiolysis, (R) ov cystectomy, Repair of vaginal cuff Anesthesia: RICK Surgeon: GABRIEL COLE Loader Operator/Ground Leader: RIGO FERRIS Estimated blood loss: minimal Specimen disposition: to lab Condition: stable Disposition: PACU
[2017-08-31] MEDS ORDERED: ZOFRAN IV PRN (13:45)
[2017-08-31] MEDS: DILAUDID IV PRN ×2 (13:50→14:00)
[2017-08-31 15:29] VITALS: BP 116/60
[2017-08-31] MEDS ORDERED: PERCOCET 5/325 PO ONE (16:32)
--- NOTE | 2017-08-31 17:53 | Operative Report ---
Operative Report Operative Report: Date: 08/30/2017 Preoperative diagnosis: 1. Vaginal cuff dehiscence 2. Pelvic pain Postoperative diagnosis: 1. Vaginal cuff dehiscence 2. Pelvic pain 3. Pelvic adhesions 4. Right ovarian cyst Procedure: 1. Laparoscopic adhesiolysis 2. Repair of vaginal cuff dehiscence 3. Right ovarian cystectomy Surgeon: Charlee Abbott MD Conservation Agent: Susanne Ngo MD Anesthesiologist: Blayne Trammell M.D. Anesthesia: Gen. anesthesia EBL: Minimal Findings: 1. Right ovarian cyst 2. Colon epiploic through the vaginal cuff 3. Bowel adhesions to the apex of the vagina Procedure: Patient was taken to the OR and placed in supine position. IV access was obtained and secured. She was placed in the dorsolithotomy position. Exam under anesthesia was unremarkable. She was prepped and draped in the usual sterile fashion. Timeout was performed. A latex free Acuna catheter was introduced into the bladder with drainage of clear yellow urine. [place] speculum was introduced into the vagina. There was a small piece of tissue protruding from the vaginal cuff that began bleeding when touched. A piece of this tissue was obtained and sent to pathology. A moist sponge stick was introduced in the vagina. Sterile gloves were placed and attention was turned to the abdomen. A vertical midline incision was made just superior to her previous midline incision. 5 mm Optiview trocar with scope and camera attached was introduced through this incision under direct visualization. No bowel bladder or ureteral or major vessel injury was noted. Patient was placed in Trendelenburg position. A 5 mm trocar was placed in the right mid clavicular lower abdominal region through an incision made at the same site as her previous incision. An additional 5 mm trocar was placed in the midline lower abdominal region through a vertical incision again under direct visualization. No bowel bladder or ureteral or major vascular injury noted. At which point Dr. Ngo released the epiploic from the apex of the vagina. Vaginal defect was easily noted at this point. The pelvis was copiously irrigated with warm normal saline. The bowel was extensively inspected to ensure no injury or perforation. Attention was turned to the right ovary were cystectomy was performed. Hemostasis was obtained with electrocautery using 30 W of energy. The ovary was irrigated with warm normal saline and hemostasis was noted. Then attention was turned to the vagina where the moist sponge stick was removed and the vaginal cuff was reapproximated using 0 Vicryl in interrupted [id number]-[id number]-ascbf fashion. Hemostasis is noted. Sterile gloves were placed and attention was turned to the abdomen again. Once the abdomen was insufflated the apex of the vaginal cuff was visualized to be well approximated and hemostasis was noted. Attention was turned to the right ovary where hemostasis was noted. Surgicel and Interceed was wrapped around the right ovary. Again with Dr. Ngo's assistance the bowel was inspected, no injury or perforation was noted. At this point the procedure was ended. The patient was taken out of Trendelenburg position and the abdomen was desufflated. The trochars were removed and the incisions were infused with 10% Marcaine without epinephrine. Incisions were then closed with 4-0 Vicryl in a subcuticular manner and covered with Surgiseal. Attention was again turned to the vagina where hemostasis was noted. Acuna catheter was removed drainage of clear yellow urine was noted. She tolerated procedure well stick to recovery room stable condition.
== END 2017-08-31 17:48 | disposition home or self-care (01) ==
LOC: OR 08:06
PROVIDERS: ATTEND Obstetrics & Gynecology
DX: N83.201 Unspecified ovarian cyst, right side (principal); T81.31XA Disruption of external operation (surgical) wound, not elsewhere classified, initial encounter; Y83.9 Surgical procedure, unspecified as the cause of abnormal reaction of the patient, or of later complication, without mention of misadventure at the time of the procedure; N99.4 Postprocedural pelvic peritoneal adhesions; K21.9 Gastro-esophageal reflux disease without esophagitis; G43.909 Migraine, unspecified, not intractable, without status migrainosus; Z98.51 Tubal ligation status; Z98.890 Other specified postprocedural states; Z86.19 Personal history of other infectious and parasitic diseases
CPT/HCPCS: 36415; 57200; 58662; 85027; 86850; 86900; 86901; 88305; C1765; J1100; J1170; J2250; J2405; J2704; J2710; J7120; Q9968